=== PATIENT | male | born 1995 ===

== ENCOUNTER 2023-05-17 09:48 | Emergency (ER) | payer OTHER ==
[~2023-05-17] VITALS: Ht 177.8 cm; Wt 95.4 kg
[2023-05-17 11:09] VITALS: BP 138/73; PULSE 110; RESP 98; TEMP 98; O2SAT 95
[2023-05-17] MEDS ORDERED: TETRACAINE HCL 0.5% OPTH(EYE) SOLN 4ML RIGHTEYE ONE (11:45)
[2023-05-17] MEDS ORDERED: FLUORESCEIN SOD OPTH TEST STRIP RIGHTEYE ONE (11:45)
[2023-05-17] MEDS ORDERED: ERYTHROMY OPTH OINT 5mg/gm 1gm or 3.5gm tube OP ONE (12:45)
[2023-05-17] MEDS ORDERED: TETANUS-DIPTH-ACEL PERTUSSIS 0.5ML SYR Tdap IM ONE (12:45)
[2023-05-17] MEDS ORDERED: HYDROcodone-ACET 5/325MG TAB PO ONE (13:15)
[2023-05-17] MEDS ORDERED: IBUP1TAB5 PO (13:19)
[2023-05-17] MEDS ORDERED: GENT0.3S10 EACHEYE (13:19)
[2023-05-17] MEDS ORDERED: CYCL-611 PO (13:19)
[2023-05-17] MEDS ORDERED: HYDR-4902 PO (13:24)
== END 2023-05-17 13:19 | disposition home or self-care (01) ==
LOC: EDBD 09:48 → EDSEX 09:48 → ER 09:48
DX: S13.9XXA Sprain of joints and ligaments of unspecified parts of neck, initial encounter (principal); S33.5XXA Sprain of ligaments of lumbar spine, initial encounter; S05.11XA Contusion of eyeball and orbital tissues, right eye, initial encounter; V43.52XA Car driver injured in collision with other type car in traffic accident, initial encounter; Y93.89 Activity, other specified; Y92.488 Other paved roadways as the place of occurrence of the external cause; Y99.8 Other external cause status
CPT/HCPCS: 70450; 70486; 72100; 72125; 90471; 90715